=== PATIENT | male | born 1995 | race Caucasian/White ===

== ENCOUNTER 2022-02-22 09:18 | Day surgery (SDC) | payer BC ==
[2022-02-14 15:01] VITALS: BMI 29.4
[2022-02-22] MEDS ORDERED: MIDAZOLAM HCL 2 MG/2 ML SINGLE DOSE VIAL ONE (10:20)
[2022-02-22] MEDS ORDERED: PROPOFOL 20 ML ONE (10:20)
[2022-02-22] MEDS ORDERED: KETOROLAC TROMETHAMINE 30 MG/1 ML VIAL ONE (10:21)
[2022-02-22] MEDS ORDERED: LIDOCAINE HCL/PF 2% SDV 5ML VIAL ONE (10:21)
[2022-02-22] MEDS ORDERED: LIDOCAINE HCL 2% JELLY (5 ML/TUBE) ONE (10:21)
[2022-02-22] MEDS ORDERED: DEXAMETHASONE SOD PHOSPHATE 4 MG/1 ML VIAL ONE (10:21)
[2022-02-22] MEDS ORDERED: ceFAZolin SODIUM 1 GM VIAL ONE (10:21)
[2022-02-22] MEDS ORDERED: ONDANSETRON 4 MG/2 ML VIAL ONE (10:21)
[2022-02-22] MEDS ORDERED: BUPIVACAINE HCL/EPINEPHRINE/PF 30 ML VIAL IJ ONE (10:34)
[2022-02-22] MEDS ORDERED: oxyCODONE HCL 5 MG TABLET PO PRN ×2 (11:23)
[2022-02-22] MEDS ORDERED: ONDANSETRON 4 MG/2 ML VIAL IVPUSH PRN (11:23)
[2022-02-22] MEDS ORDERED: PROMETHAZINE HCL 25 MG/1 ML VIAL IVPUSH PRN (11:23)
[2022-02-22 12:08] VITALS: TEMP 97.5
[2022-02-22 12:42] VITALS: BP 110/62; PULSE 71
== END 2022-02-22 12:50 | disposition home or self-care (01) ==
LOC: FASU 09:18
PROVIDERS: ATTEND Orthopaedic Surgery
PROC: 0KBS0ZX Excision of Right Lower Leg Muscle, Open Approach, Diagnostic (ICD-10-PCS; principal; 2022-02-22 10:53)
DX: D17.23 Benign lipomatous neoplasm of skin and subcutaneous tissue of right leg (principal)
CPT/HCPCS: 88304-TC; 94760